=== PATIENT | male | born 1945 | race Caucasian/White ===

== ENCOUNTER 2024-05-18 05:38 | Emergency (ER) | payer MEDICARE, SELFPAY ==
[2024-05-18] VITALS (10 sets, daily range): BP systolic 100–121; BP diastolic 66–82; BMI 25.3
--- NOTE | 2024-05-18 06:55 | ED.GENMED ---
History of Present Illness
General
Chief Complaint: Fall
Time Seen by Provider: 05/18/24 06:54
History of Present Illness
History of Present Illness:
TIME OF INITIAL ENCOUNTER: 6:15 AM
HPI: Patient came in by ambulance from the [facility] after a fall and reportedly has had a few falls recently. The patient is somewhat of a limited historian. The patient has history of Lewy body dementia. He denies any pain currently.
He denies any complaints.
EXAM:
GENERAL: Well appearing in no distress, bradykinesia noted
CERVICAL SPINE: No midline c-spine tenderness with excellent AROM
HEAD: No evidence of craniofacial trauma
CHEST: No chest wall tenderness, normal heart sounds
LUNGS: Equal lung sounds, no respiratory distress
ABDOMEN: No abdominal tenderness, no peritoneal signs
EXTREMITIES: Near normal active range of motion, no tenderness,
NEURO: Equally decreased strength all extremities, appears slightly confused but is able to correctly name month and place, speaks in low-volume
NUMBER AND COMPLEXITY OF PROBLEMS ADDRESSED AT THE ENCOUNTER
� Chronic conditions affecting care: Dementia, Parkinson's Lewy body
� Acute Exacerbation and/or Progression of Chronic Illness: This is an acute problem
� Differential Diagnosis includes: Shoulder fracture, shoulder contusion, anemia, electrolyte abnormality ROSAMARIA
AMOUNT AND/OR COMPLEXITY OF DATA TO BE REVIEWED AND ANALYZED
� I performed an independent evaluation of and my interpretation is:
EKG:
CT:
X-rays: X-ray of the right shoulder reviewed which shows no acute abnormality but does show degenerative changes at the right AC joint
Laboratory Studies: CBC relatively unremarkable, chemistries also unremarkable (potassium hemolyzed and not reported but renal function normal)
Other:
� Review of other/old records: No old records available for review
� Clinical information was obtained by an independent historian: I reviewed the paperwork from EMS and facility notes
� Prescriptions/Medications Considered but not given:
� Further testing considered but not performed:
RISK OF COMPLICATIONS AND/OR MORBIDITY OR MORTALITY OF PATIENT MANAGEMENT
� Social determinants of health affecting care: Resides at the [facility]
� Discussion with other providers:
� Escalation of care including admission/observation vs risk of discharge considered: The patient appears chronically weak. He reportedly had been falling more recently, will check labs. No clear evidence of traumatic injury
based on physical examination.
ANY OTHER UPDATES:
8:30 AM: I reassessed patient. No further issues.
Phy Exam
Physical Exam
Physical Exam:
See HPI
Course
Orders/Labs/Results
Orders:
Orders
05/18/24 07:08
CR Shoulder, Trauma - Right Urgent
Comment:
Reason For Exam: fall
05/18/24 07:18
Basic Metabolic Panel Urgent
Complete Blood Count/With Diff Urgent
Abnormal Lab Results
05/18/24
07:18
WBC 4.5 L 10^3/uL
(4.8-10.8)
RBC 3.73 L 10^6/uL
(4.70-6.10)
Hgb 12.8 L g/dL
(13.0-18.0)
Hct 34.5 L %
(39.0-52.0)
MCH 34.3 H pg
(27.0-31.0)
MCHC 37.1 H g/dL
(33.0-37.0)
Absolute Lymphs (auto) 0.5 L 10^3/uL
(1.2-3.4)
Immature Gran % 0.7 H %
(0-0.5)
Neutrophils % 78.8 H %
(42.2-75.2)
Lymphocytes % 12.1 L %
(20.5-51.1)
Sodium 134 L mmol/L
(135-145)
BUN 35 H mg/dl
(12-15)
05/18/24 07:18
05/18/24 07:18
Vital Signs
Initial and Last Documented VS:
Initial Vital Signs
BP
117/72
05/18/24 05:44
Last Documented Vital Signs
Temp Pulse Resp BP Pulse Ox
36.9 C 77 16 113/82 95
05/18/24 05:57 05/18/24 06:08 05/18/24 05:57 05/18/24 09:15 05/18/24 09:45
*Critical Care Note
Total Time (30-74mins, 75-104mins- exclusive of procedures): Not Applicable
ED Attending Note
-
Portions of this chart may have been created with voice recognition software.� Occasional wrong word or��sound alike� substitutions may have occurred due to the inherent limitations of voice recognition software.
Discharge Plan
Departure
Patient Disposition: Home (Routine Discharge)
Date of Disposition: 05/18/24
Time of Disposition: 08:26
Patient with high blood pressure during this ER visit?: Yes
Discharge Problem:
Falls
Instructions: Preventing falls in adults, BLOOD PRESSURE
Prescriptions:
No Action
fluoxetine 40 mg Capsule
40 mg PO DAILY
atorvastatin 20 mg Tablet
20 mg PO DAILY
trazodone 50 mg Tablet
50 mg PO HS
donepezil 10 mg Tablet
10 mg PO HS
lisinopril 20 mg Tablet
20 mg PO DAILY
acetaminophen 500 mg Tablet
1,000 mg PO Q8H PRN (Reason: pain)
tamsulosin 0.4 mg Capsule
0.4 mg PO DAILY
albuterol sulfate 90 mcg/actuation Hfa Aerosol Inhaler
2 puff INHALATION BID
albuterol sulfate 90 mcg/actuation Hfa Aerosol Inhaler
2 puff INHALATION Q6H PRN (Reason: shortness of breath)
Certa Plus SENIOR Tablet
1 tab PO DAILY
Referrals:
UNKNOWN - PT DOES,NOT KNOW [Family Provider] -
Activity Restrictions/Additional Instructions:
Basic blood work unremarkable. No sign of traumatic injury on exam. Return here if worse or other concern.
Interventions
Interventions:
*Risk Screen - Suicide Last Done: 05/18/24 05:57
*General Assessment Last Done: 05/18/24 05:57
*Neglect/Abuse Screening Last Done: 05/18/24 05:57
ED- Fall Risk Assessment Last Done: 05/18/24 05:57
*ED COVID-19 Vaccine History Last Done: 05/18/24 05:57
ED-Musculoskeletal Assessment Last Done: 05/18/24 05:57
ED- Neurological Assessment Last Done: 05/18/24 05:57
ED-Skin Assessment Last Done: 05/18/24 06:00
Discharge Date and Time
Print Language: GEORGIAN
[2024-05-18 07:40] LABS: % Basophils 0.2 % (0-2); % Eosinophils 1.1 % (0-6); % Immature Granulocytes 0.7 % (0-0.5); % Lymphocytes 12.1 % (20.5-51.1); % Monocytes 7.1 % (1.7-9.3); % Neutrophils 78.8 % (42.2-75.2); Absolute Eosinophils 0.1 10^3/uL (0-0.7); Absolute Lymphocytes 0.5 10^3/uL (1.2-3.4); Absolute Monocytes 0.3 10^3/uL (0.1-0.6); Absolute Neutrophils 3.5 10^3/uL (1.4-6.5); Hematocrit 34.5 % (39.0-52.0); Hemoglobin 12.8 g/dL (13.0-18.0); Mean Corp Hgb Conc. 37.1 g/dL (33.0-37.0); Mean Corpuscular Hgb 34.3 pg (27.0-31.0); Mean Corpuscular Volume 92.5 fL (80.0-94.0); Mean Platelet Volume 9.4 fL (7.4-10.4); Nucleated Red Blood Cells % 0 % (-); Platelet Count 154 10^3/uL (130-400); Red Blood Cell Count 3.73 10^6/uL (4.70-6.10); Red Cell Dist. Width 11.6 % (11.5-14.5); White Blood Cell Count 4.5 10^3/uL (4.8-10.8)
[2024-05-18 08:23] LABS: Blood Urea Nitrogen 35 mg/dl (9-20); Calcium 8.7 mg/dl (8.4-10.2); Carbon Dioxide 23 mmol/L (22-30); Chloride 105 mmol/L (98-107); Estimated Creatinine Clearance 79 ml/min; Glucose 95 mg/dl (70-99); Sodium 134 mmol/L (135-145); eGFR > 60.00
== END 2024-05-18 10:57 | disposition home or self-care (01) ==
LOC: EMR 05:38
PROVIDERS: EMERGENCY PHYSICIAN Emergency Medicine
DX: Z04.89 Encounter for examination and observation for other specified reasons (principal); W19.XXXA Unspecified fall, initial encounter; F02.80 Dementia in other diseases classified elsewhere, unspecified severity, without behavioral disturbance, psychotic disturbance, mood disturbance, and anxiety; G31.83 Neurocognitive disorder with Lewy bodies
CPT/HCPCS: 99283; 73030; 80048; 85025

== ENCOUNTER 2024-07-11 12:15 | Emergency (ER) | payer MEDICARE, SELFPAY ==
[2024-07-11] VITALS (8 sets, daily range): BP systolic 91–133; BP diastolic 57–85; BMI 24.4
[2024-07-11 12:38] LABS: % Basophils 0.4 % (0-2); % Eosinophils 0.7 % (0-6); % Immature Granulocytes 0.2 % (0-0.5); % Lymphocytes 24.3 % (20.5-51.1); % Monocytes 6.9 % (1.7-9.3); % Neutrophils 67.5 % (42.2-75.2); Absolute Lymphocytes 1.1 10^3/uL (1.2-3.4); Absolute Monocytes 0.3 10^3/uL (0.1-0.6); Absolute Neutrophils 3.1 10^3/uL (1.4-6.5); Hematocrit 37.5 % (39.0-52.0); Hemoglobin 13.7 g/dL (13.0-18.0); Mean Corp Hgb Conc. 36.5 g/dL (33.0-37.0); Mean Corpuscular Hgb 33.7 pg (27.0-31.0); Mean Corpuscular Volume 92.4 fL (80.0-94.0); Mean Platelet Volume 9.2 fL (7.4-10.4); Nucleated Red Blood Cells % 0 % (-); Platelet Count 168 10^3/uL (130-400); Red Blood Cell Count 4.06 10^6/uL (4.70-6.10); Red Cell Dist. Width 11.3 % (11.5-14.5); White Blood Cell Count 4.6 10^3/uL (4.8-10.8)
[2024-07-11 12:40] LABS: Urine Albumin 2+ (Neg - Trace); Urine Bilirubin Negative (Negative); Urine Character Clear (Clear); Urine Color Yellow; Urine Glucose Negative (Negative); Urine Ketone Negative (Negative); Urine Leukocyte 1+ (Negative); Urine Nitrite Negative (Negative); Urine Occult Blood Negative (Negative); Urine Specific Gravity 1.015 (<1.030); Urine Urobilinogen 2+ (Neg - 1+)
[2024-07-11 12:52] LABS: ALT (SGPT) 33 U/L (0-50); AST (SGOT) 21 U/L (17-59); Albumin 3.4 g/dl (3.5-5.0); Alkaline Phosphatase 77 U/L (38-126); Blood Urea Nitrogen 30 mg/dl (9-20); Calcium 9.3 mg/dl (8.4-10.2); Carbon Dioxide 27 mmol/L (22-30); Chloride 105 mmol/L (98-107); Estimated Creatinine Clearance 57 ml/min; Glucose 112 mg/dl (70-99); Potassium 4.5 mmol/L (3.5-5.1); Sodium 139 mmol/L (135-145); Total Bilirubin 0.9 mg/dl (0.2-1.3); Total Protein 6.3 g/dl (6.3-8.2); eGFR > 60.00
[2024-07-11 13:22] LABS: Urine Bacteria Few (Negative); Urine Mucus Few; Urine Squamous Cell 0-2 /LPF (Few); Urine White Cell 0-2 /HPF (0-5)
--- NOTE | 2024-07-11 14:09 | ED.GENMED ---
History of Present Illness
General
Chief Complaint: Change in Mental Status
Source: patient
Exam Limitations: none
Time Seen by Provider: 07/11/24 12:49
Nursing documentation reviewed up to this point in time: agreed with
History of Present Illness
History of Present Illness:
78 y/o M
lewy body dementia
from [facility]
h/o BPH, frequent urination/incontinence
here with hypotension this morning with more lethargy/slower to respond than normal
pt does not recall this
he is able to answre some simplequestions but not christensen of details
no fever, pain, headache, cp, sob, abdominal pain, vomiting, diarrhea
he thinks he is a little constipated
Past History
Past History
ED Past Medical History: Psychiatric and Other (lewy body dementia)
Review of Systems
Review of Systems
Allergies reviewed?: Yes
All Other Systems: Not applicable
Phy Exam
Physical Exam
Physical Exam:
GENERAL: Alert , in no apparent distress, parkinsons' facies
EYE: pupils equal and reactive
NECK: Supple
ENT: o/p clr, mmm.
CARDIAC: Regular rate and rhythm . no edema
LUNGS: Clear breath sounds bilaterally, no acute respiratory distress, no wheezes/rales/rhonchi
ABDOMEN: Soft, without focal tenderness, no r/g, no cvat, normal bowel sounds
frequent urination , but this is reported as a chronic problem
inspection normal
NEUROLOGICAL: Alert and orientedx 2-3 no focal neuro deficits; tremor on intention; awake; slow to respond d/t parkinsons
SKIN: Warm and dry, skin intact.
MUSCULOSKELETAL: No edema, well perfused. neg saumya's sign
PSYCH: Normal and appropriate interaction.
Course
Orders/Labs/Results
Orders:
Orders
07/11/24 12:29
Complete Blood Count/With Diff Urgent
Comprehensive Metabolic Panel Urgent
07/11/24 12:30
Urinalysis Urgent
Date Specimen was Collected: 07/11/24
Time Specimen was Collected: 12:28
Urine Microscopic Urgent
Date Specimen was Collected: 07/11/24
Time Specimen was Collected: 12:28
07/11/24 13:27
CT Head W/o Iv Contrast Urgent
Comment:
Reason For Exam: ams
0.9% Sodium Chloride 500 ml [Nss] 500 ml IV BOLUS
07/11/24 13:28
CR Chest - 2 Views Urgent
Comment:
Reason For Exam: ams, hypotension
07/11/24 13:49
CT Abd/pel Without Iv Or Oral Urgent
Comment:
Reason For Exam: hematuria, urinary frequency, hypotension
07/11/24 14:50
COVID-19 Antigen Urgent
Source: Nasal Swab
Lactic Acid Urgent
Influenza A+B Rapid Molecular Urgent
JAMES Source: Nasal Swab
Specimen Description:
07/11/24 15:37
Fosfomycin [Monurol] 3 gm PO ONCE ONE
Abnormal Lab Results
07/11/24 07/11/24
12:29 12:30
WBC 4.6 L 10^3/uL
(4.8-10.8)
RBC 4.06 L 10^6/uL
(4.70-6.10)
Hct 37.5 L %
(39.0-52.0)
MCH 33.7 H pg
(27.0-31.0)
RDW 11.3 L %
(11.5-14.5)
Absolute Lymphs (auto) 1.1 L 10^3/uL
(1.2-3.4)
BUN 30 H mg/dl
(9-20)
Glucose 112 H mg/dl
(70-99)
Albumin 3.4 L g/dl
(3.5-5.0)
Urine Urobilinogen 2+ A
(Neg - 1+)
Ur Leukocyte Esterase 1+ A
(Negative)
Urine RBC 3-6 A /HPF
(0-2)
Urine Bacteria Few A
(Negative)
Urine Albumin 2+ A
(Neg - Trace)
07/11/24 12:29
07/11/24 12:29
Vital Signs
Initial and Last Documented VS:
Initial Vital Signs
Pulse Resp BP
71 17 102/62
07/11/24 12:19 07/11/24 12:19 07/11/24 12:19
Last Documented Vital Signs
Pulse Resp BP Pulse Ox
65 18 133/75 95
07/11/24 16:11 07/11/24 16:11 07/11/24 16:16 07/11/24 16:21
MDM/Problems Addressed
Differential Diagnosis Includes:
sepsis/infection, dehydration, parkinsons
MDM/Problems Addressed:
78 y/o M
parkinsons
ambulates with walker at baseline
more lethargic today thanusual per RN i spoke with on the phone
bp was 70/50
he did
ED Attending Note
-
Portions of this chart may have been created with voice recognition software.� Occasional wrong word or��sound alike� substitutions may have occurred due to the inherent limitations of voice recognition software.
Discharge Plan
Departure
Patient Disposition: Detention/SNF
Date of Disposition: 07/11/24
Time of Disposition: 17:03
Patient with high blood pressure during this ER visit?: No
Condition: Fair
Covid-19: Not Applicable
Discharge Problem:
Parkinson's disease
Instructions: Dementia (DC)
Prescriptions:
No Action
fluoxetine 40 mg Capsule
40 mg PO DAILY
atorvastatin 20 mg Tablet
20 mg PO DAILY
trazodone 50 mg Tablet
50 mg PO HS
donepezil 10 mg Tablet
10 mg PO HS
lisinopril 20 mg Tablet
20 mg PO DAILY
acetaminophen 500 mg Tablet
1,000 mg PO Q8HPRN PRN (Reason: MILD pain)
tamsulosin 0.4 mg Capsule
0.4 mg PO DAILY
albuterol sulfate 90 mcg/actuation Hfa Aerosol Inhaler
2 puff INHALATION R BID
albuterol sulfate 90 mcg/actuation Hfa Aerosol Inhaler
2 puff INHALATION R Q6HPRN PRN (Reason: shortness of breath)
Certa Plus SENIOR Tablet
1 tab PO DAILY
Referrals:
Kevin Franco MD [Family Provider] -
Activity Restrictions/Additional Instructions:
THERE WAS NO HYPOTENSION HERE
BPS WERE INT HE 100S
NO FEVER
UNREMARKABLE LABS (STABLE ELEVATED BUN, BUT HE WAS GIVEN FLUIDS)
URINE WAS MINIMAL: FEW BACTERIA BUT NO WBCS, SMALL BLOOD
CT HEAD/ABDOMEN NEG
GIVEN A DOSE OF MONUROL IN CASE HE HAS INFECTION
WILL SEND URINE CULTURE
WAS ABLE TO AMBULATE WITH WALKER
Interventions
Interventions:
*Risk Screen - Suicide Last Done: 07/11/24 12:26
*General Assessment Last Done: 07/11/24 12:26
*ED COVID-19 Vaccine History Last Done: 07/11/24 12:26
*Nursing Disposition Last Done: 07/11/24 18:31
ED- Neurological Assessment Last Done: 07/11/24 14:56
Discharge Date and Time
Discharge Date/Time: 07/11/24 18:32
Print Language: SPANISH
[2024-07-11] MEDS: NSS 500 IV (14:52)
[2024-07-11 15:16] LABS: COVID-19 Antigen Negative (Negative)
[2024-07-11 15:17] LABS: Lactic Acid 0.9 mmol/L (0.7-2.0)
[2024-07-11] MEDS: MONUROL 3 GM PO (16:09)
== END 2024-07-11 18:32 ==
LOC: EMR 12:15
PROVIDERS: Emergency Medicine; Physician Assistant; EMERGENCY PHYSICIAN Emergency Medicine; FAMILY PHYSICIAN Family Medicine
DX: G20.A1 Parkinson's disease without dyskinesia, without mention of fluctuations (principal); K59.00 Constipation, unspecified; G31.83 Neurocognitive disorder with Lewy bodies; F02.80 Dementia in other diseases classified elsewhere, unspecified severity, without behavioral disturbance, psychotic disturbance, mood disturbance, and anxiety
CPT/HCPCS: 99284; 96360; 70450; 71046; 74176; 80053; 81003; 81015; 83605; 85025; 87502; 87811

== ENCOUNTER → 2024-11-19 11:22 | Outpatient (REF) | payer OTHER, MEDICARE, SELFPAY ==
[2024-11-19 13:53] LABS: Hematocrit 39.3 % (39.0-52.0); Hemoglobin 13.8 g/dL (13.0-18.0); Mean Corp Hgb Conc. 35.1 g/dL (33.0-37.0); Mean Corpuscular Volume 93.8 fL (80.0-94.0); Nucleated Red Blood Cells % 0 % (-); Platelet Count 198 10^3/uL (130-400); Red Cell Dist. Width 11.6 % (11.5-14.5)
[2024-11-19 14:03] LABS: Blood Urea Nitrogen 24 mg/dl (9-20); Calcium 8.7 mg/dl (8.4-10.2); Carbon Dioxide 27 mmol/L (22-30); Chloride 105 mmol/L (98-107); Glucose 98 mg/dl (70-99); Potassium 4.2 mmol/L (3.5-5.1); Sodium 136 mmol/L (135-145); eGFR > 60.00
== END ==
LOC: OLABP 11:22
PROVIDERS: ATTENDING PHYSICIAN Family Medicine
DX: M62.59 Muscle wasting and atrophy, not elsewhere classified, multiple sites (principal); E78.5 Hyperlipidemia, unspecified; F03.90 Unspecified dementia, unspecified severity, without behavioral disturbance, psychotic disturbance, mood disturbance, and anxiety
CPT/HCPCS: 36415; 80048; 85025

== ENCOUNTER 2025-01-13 10:00 | Emergency (ER) | payer MEDICARE, SELFPAY ==
[2025-01-13 10:04] VITALS: BP 119/74
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
[2025-01-13 10:53] VITALS: BP 138/83
[2025-01-13 10:57] VITALS: BMI 25.1
[2025-01-13 11:00] VITALS: BP 125/83
[2025-01-13 12:01] VITALS: BP 117/71
== END 2025-01-13 12:50 | disposition home or self-care (01) ==
LOC: EMR 10:00
PROVIDERS: EMERGENCY PHYSICIAN Emergency Medicine; FAMILY PHYSICIAN Family Medicine
DX: S09.90XA Unspecified injury of head, initial encounter (principal); S50.312A Abrasion of left elbow, initial encounter; W19.XXXA Unspecified fall, initial encounter; G20.A1 Parkinson's disease without dyskinesia, without mention of fluctuations; G31.83 Neurocognitive disorder with Lewy bodies; F02.80 Dementia in other diseases classified elsewhere, unspecified severity, without behavioral disturbance, psychotic disturbance, mood disturbance, and anxiety
CPT/HCPCS: 99284; 70450

== ENCOUNTER 2025-03-22 11:08 | Inpatient (IN) | payer MEDICARE, SELFPAY ==
[2025-03-20] VITALS (10 sets, daily range): BP systolic 93–158; BP diastolic 62–88
--- NOTE | 2025-03-20 09:21 | ED.GENMED ---
History of Present Illness
<Ruma Romano PA-C - Last Filed: 03/20/25 14:56>
General
Chief Complaint: Fall
Source: patient, ambulance crew and long term
Exam Limitations: dementia
Time Seen by Provider: 03/20/25 09:05
Nursing documentation reviewed up to this point in time: agreed with
History of Present Illness
History of Present Illness:
see MDM
Past History
<Ruma Romano PA-C - Last Filed: 03/20/25 14:56>
Past History
ED Past Medical History: Psychiatric and Other (lewy body dementia)
Social History
Tobacco: Non-smoker
Alcohol: None
Review of Systems
<USAMA Elizalde Last Filed: 03/20/25 14:56>
Review of Systems
Allergies reviewed?: Yes
All Other Systems: Not applicable
Phy Exam
<Ruma Romano PA-C - Last Filed: 03/20/25 14:56>
Physical Exam
Physical Exam:
GENERAL: Alert , in no apparent distress
HEAD: Patient has a 3.5 cm open laceration nonbleeding to the left parietal scalp, small hematoma, mildly tender
NECK: no midline tenderness, active ROM intact, no paraspinal muscle tenderness;
EYE: pupils equal and reactive, EOMs intact.
ENT: o/p clr, mmm. no hemotympanum
CARDIAC: Regular rate and rhythm, no edema
LUNGS: Clear breath sounds bilaterally, no acute respiratory distress, no wheezes/rales/rhonchi
ABDOMEN: Soft, without focal tenderness, no r/g, no cvat
NEUROLOGICAL: Alert and oriented x 2, thinks he is at [facility], occasionally speaks some nonsensical language but otherwise can answer simple questions, does not recall the injury, no focal neuro deficits, CN intact, 5/5 strength,
sensation intact
SKIN: Warm and dry,
2 cm round flucutant abscess to midline upper L spine region
already draning with expression
cultured, I&D'd
no cellulitis
MUSCULOSKELETAL: Right forearm skin tear with some bruising with full range of motion, left hip mildly sore with flexion
PSYCH: Normal and appropriate interaction.
Course
<Ruma Romano PA-C - Last Filed: 03/20/25 14:56>
Orders/Labs/Results
Orders:
Orders
03/20/25 08:35
CT Cervical Spine W/o Iv Contr Urgent
Comment:
Reason For Exam: fall
CT Head W/o Iv Contrast Urgent
Comment:
Reason For Exam: fall
03/20/25 09:24
Electrocardiogram (*1) Urgent
Reason for Study: Fatigue / Weakness
EKG- Treatment ONCE
03/20/25 09:29
CR Forearm - Right 2 View Urgent
Comment:
Reason For Exam: fall
Hip, Left 2-3 Views [CR Hip - LT w/wo Pel 2-3 Vw*] Urgent
Comment:
Reason For Exam: fall L hip pain
Include a pelvis x-ray?: Yes
03/20/25 09:37
CPK [Creatine Phosphokinase] Urgent
Complete Blood Count/With Diff Urgent
Comprehensive Metabolic Panel Urgent
Urinalysis Reflex To Culture Urgent
Date Specimen was Collected: 03/20/25
Time Specimen was Collected: 09:26
Urine Microscopic Reflex Cult Urgent
Urine Culture Urgent
JAMES Source: U
Specimen Description:
Date Specimen was Collected: 03/20/25
Time Specimen was Collected: 09:26
03/20/25 09:59
0.9% Sodium Chloride 1000 ml [Nss] 1,000 ml IV BOLUS
03/20/25 10:16
Troponin I Urgent
03/20/25 11:46
Basic Metabolic Panel Urgent
CPK [Creatine Phosphokinase] Urgent
03/20/25 13:26
Admit/Transfer Patient As Directed
Co-Sign Provider:
Level of Care: Observation services
Assign to:: Medical/Surgical
Physician / Group: florentino burris
Diagnosis: unwitnessed fall l scalp lac, R arm skintear, rhabdo-mild, weakness
03/20/25 13:27
Code Status As Directed
Resuscitation Status: Do not resuscitate
Based on pt advanced directive or healthcare POA form: Yes
Decision communicated with: per poldst form
DNR Bracelet Application ONCE
03/20/25 13:28
PRN Pain Medication Management As Directed
May give lesser potent ordered pain med per pt: Yes
preference::
Protocol:: Medication orders for pain may be administered in a
manner that supports deferring to patient preference
when the pt is:
- Requesting an ordered lesser potent pain medication.
Least to most potent pain medications are defined
as: acetaminophen < NSAID < tramadol < opioids
(morphine, oxycodone, hydromorphone).
- Requesting a lesser dose of the same medication IF
ORDERED.
- Requesting a less intrusive route of administration
if both routes are prescribed by the provider (PO <
IV).
03/20/25 13:45
COVID-19 Antigen Urgent
Source: Nasal Swab
Influenza A+B Rapid Molecular Urgent
JAMES Source: Nasal Swab
Specimen Description:
03/20/25 14:00
CefTRIAXone [Rocephin] 1,000 mg IV Q24H
03/20/25 14:19
Doxycycline Hyclate [Vibramycin] 100 mg 0.9% Sodium Chloride 250 ml [Nss] 250 ml IV NOW
Abnormal Lab Results
03/20/25 03/20/25
09:37 11:46
RBC 4.24 L 10^6/uL
(4.70-6.10)
Hct 37.7 L %
(39.0-52.0)
MCH 32.8 H pg
(27.0-31.0)
Absolute Lymphs (auto) 0.8 L 10^3/uL
(1.2-3.4)
Absolute Monos (auto) 0.7 H 10^3/uL
(0.1-0.6)
Neutrophils % 79.1 H %
(42.2-75.2)
Lymphocytes % 10.8 L %
(20.5-51.1)
Monocytes % 9.4 H %
(1.7-9.3)
BUN 29 H mg/dl 25 H mg/dl
(9-20) (9-20)
Glucose 109 H mg/dl
(70-99)
Total Bilirubin 1.7 H mg/dl
(0.2-1.3)
Creatine Kinase 941 H U/L 934 H U/L
(55-170) (55-170)
Urine Ketones 2+ A
(Negative)
Ur Occult Blood Reflex 4+ A
(Negative)
Leukocyte Esterase Rfl 1+ A
(Negative)
Urine RBC 11-15 A /HPF
(0-2)
Urine Bacteria (Reflex) Many A
(Negative)
Urine Albumin (Reflex) 3+ A
(Neg - Trace)
03/20/25 09:37
03/20/25 11:46
Vital Signs
Initial and Last Documented VS:
Initial Vital Signs
Temp Pulse Resp Pulse Ox
36.4 C 70 22 98
03/20/25 08:32 03/20/25 08:32 03/20/25 08:32 03/20/25 08:32
Last Documented Vital Signs
Temp Pulse Resp BP Pulse Ox
38.0 C H 71 14 125/87 97
03/20/25 13:38 03/20/25 13:00 03/20/25 13:00 03/20/25 13:00 03/20/25 10:40
<Zeferino Art, DO - Last Filed: 03/20/25 12:33>
Orders/Labs/Results
Orders:
Orders
03/20/25 08:35
CT Cervical Spine W/o Iv Contr Urgent
Comment:
Reason For Exam: fall
CT Head W/o Iv Contrast Urgent
Comment:
Reason For Exam: fall
03/20/25 09:24
Electrocardiogram (*1) Urgent
Reason for Study: Fatigue / Weakness
EKG- Treatment ONCE
03/20/25 09:29
CR Forearm - Right 2 View Urgent
Comment:
Reason For Exam: fall
Hip, Left 2-3 Views [CR Hip - LT w/wo Pel 2-3 Vw*] Urgent
Comment:
Reason For Exam: fall L hip pain
Include a pelvis x-ray?: Yes
03/20/25 09:37
CPK [Creatine Phosphokinase] Urgent
Complete Blood Count/With Diff Urgent
Comprehensive Metabolic Panel Urgent
Urinalysis Reflex To Culture Urgent
Date Specimen was Collected: 03/20/25
Time Specimen was Collected: 09:26
Urine Microscopic Reflex Cult Urgent
Urine Culture Urgent
JAMES Source: U
Specimen Description:
Date Specimen was Collected: 03/20/25
Time Specimen was Collected: 09:26
03/20/25 09:59
0.9% Sodium Chloride 1000 ml [Nss] 1,000 ml IV BOLUS
03/20/25 10:16
Troponin I Urgent
03/20/25 11:46
Basic Metabolic Panel Urgent
CPK [Creatine Phosphokinase] Urgent
03/20/25 13:26
Admit/Transfer Patient As Directed
Co-Sign Provider:
Level of Care: Observation services
Assign to:: Medical/Surgical
Physician / Group: florentino burris
Diagnosis: unwitnessed fall l scalp lac, R arm skintear, rhabdo-mild, weakness
03/20/25 13:27
Code Status As Directed
Resuscitation Status: Do not resuscitate
Based on pt advanced directive or healthcare POA form: Yes
Decision communicated with: per poldst form
DNR Bracelet Application ONCE
03/20/25 13:28
PRN Pain Medication Management As Directed
May give lesser potent ordered pain med per pt: Yes
preference::
Protocol:: Medication orders for pain may be administered in a
manner that supports deferring to patient preference
when the pt is:
- Requesting an ordered lesser potent pain medication.
Least to most potent pain medications are defined
as: acetaminophen < NSAID < tramadol < opioids
(morphine, oxycodone, hydromorphone).
- Requesting a lesser dose of the same medication IF
ORDERED.
- Requesting a less intrusive route of administration
if both routes are prescribed by the provider (PO <
IV).
03/20/25 13:45
COVID-19 Antigen Urgent
Source: Nasal Swab
Influenza A+B Rapid Molecular Urgent
JAMES Source: Nasal Swab
Specimen Description:
03/20/25 14:00
CefTRIAXone [Rocephin] 1,000 mg IV Q24H
03/20/25 14:19
Doxycycline Hyclate [Vibramycin] 100 mg 0.9% Sodium Chloride 250 ml [Nss] 250 ml IV NOW
Abnormal Lab Results
03/20/25 03/20/25
09:37 11:46
RBC 4.24 L 10^6/uL
(4.70-6.10)
Hct 37.7 L %
(39.0-52.0)
MCH 32.8 H pg
(27.0-31.0)
Absolute Lymphs (auto) 0.8 L 10^3/uL
(1.2-3.4)
Absolute Monos (auto) 0.7 H 10^3/uL
(0.1-0.6)
Neutrophils % 79.1 H %
(42.2-75.2)
Lymphocytes % 10.8 L %
(20.5-51.1)
Monocytes % 9.4 H %
(1.7-9.3)
BUN 29 H mg/dl 25 H mg/dl
(9-20) (9-20)
Glucose 109 H mg/dl
(70-99)
Total Bilirubin 1.7 H mg/dl
(0.2-1.3)
Creatine Kinase 941 H U/L 934 H U/L
(55-170) (55-170)
Urine Ketones 2+ A
(Negative)
Ur Occult Blood Reflex 4+ A
(Negative)
Leukocyte Esterase Rfl 1+ A
(Negative)
Urine RBC 11-15 A /HPF
(0-2)
Urine Bacteria (Reflex) Many A
(Negative)
Urine Albumin (Reflex) 3+ A
(Neg - Trace)
03/20/25 09:37
03/20/25 11:46
Vital Signs
Initial and Last Documented VS:
Initial Vital Signs
Temp Pulse Resp Pulse Ox
36.4 C 70 22 98
03/20/25 08:32 03/20/25 08:32 03/20/25 08:32 03/20/25 08:32
Last Documented Vital Signs
Temp Pulse Resp BP Pulse Ox
38.0 C H 71 14 125/87 97
03/20/25 13:38 03/20/25 13:00 03/20/25 13:00 03/20/25 13:00 03/20/25 10:40
Procedures
<Ruma Romano PA-C - Last Filed: 03/20/25 14:56>
Laceration Closure
Left Upper Posterior Scalp:
Status of Wound: clean
Size of Wound in cm: 3.5
Description of Wound Edges: sharp
Preparation: cleaned with saline
Anesthesia: 1% Lidocaine with epi
Revision/Debridement: routine- no revision
Type of Closure: single layer closure
Skin Closure Material: skin myah
Number of sutures: 4
Incision/Drainage/Joint Aspiration
Lower Back:
Anethesia: 1% Lidocaine with Epi
Preparation: cleaned with Betadine
Type of procedure: incise
Nature of site: abscess
Description of abscess: less than 3cm
Loculations broken up: Yes
How much fluid was obtained?: small amount
Fluid description: purulent
Treatment: left open for drainage
<uRma Romano PA-C - Last Filed: 03/20/25 14:56>
MDM/Problems Addressed
Differential Diagnosis Includes:
See MDM
MDM/Problems Addressed:
Note:
CHIEF COMPLAINT(S)
- Fall with head injury.
HISTORY OF PRESENT ILLNESS
The patient is a 79-year-old male h/o parkinsons and lewy body dementia who presented after a fall. from [facility]. The exact location of the fall was not specified in the conversation, but it was confirmed that the patient did experience
a fall and subsequently had bruising and a cut on his right arm. The patient experiences a headache but seems uncertain about the exact pain ('Do you have a headache? Yeah. You have a headache? I dont know.'). The patient had some difficulty opening
his eyes when asked to do so, requiring multiple prompts. During the examination, the patient was asked to perform various tasks such as squeezing hands, sticking out his tongue, and lifting his legs. The tests revealed hip pain upon movement, with
the right hip being cited as painful.
he is poor historian
i called [facility]
upon morning rounds, he was on the ground on his back, wounds R forearm
pt has no h/o blood thinners
CHRONIC MEDICAL CONDITIONS SIGNIFICANTLY AFFECTING CARE
- Parkinsons disease.
PHYSICAL EXAM
see above
PROBLEM LIST
Acute Problems:
- Fall with head injury.
- Arm laceration and bruising.
- Hip pain.
Chronic Problems:
- Parkinsons disease.
DIFFERENTIAL DIAGNOSIS
The Differential Diagnosis includes, in no particular order and is not limited to:
1. Parkinsons disease-associated falls and injury.
2. Orthostatic hypotension leading to fall.
3. Cerebrovascular accident.
4. Head trauma with possible concussion.
5. Dementia or cognitive impairment contributing to fall risk.
6. Cardiac arrhythmia causing syncope.
7. Seizure disorder with post-ictal state.
8. Vestibular dysfunction.
9. Medication side effects contributing to falls.
10. Lower extremity weakness from chronic conditions.
CARE-UPDATE
03/20/25 - 10:21
The patient was found on his back with a 3.5 cm laceration on the left side of the scalp, which had dried blood but no active bleeding. He also exhibited mild discomfort with left hip movement, but X-ray showed only mild degenerative changes, with
no fracture. A skin tear was noted on the right forearm, but no forearm fracture was present. Head and neck CT scans were negative except for degenerative joint disease. The patients dark urine raised concern for rhabdomyolysis, but CPK levels will
determine further management. Currently receiving IV fluids with disposition pending CPK results.
2nd CPK still elevated
admit
note pt had abscess midline back wihtout cellulitis
likely follicultiis
I&D successful, cultured
pt now febrile
admit
iv abx
<Ruma Romano PA-C - Last Filed: 03/20/25 14:56>
*Pulse Oximetry
SaO2: 98
Oxygen Mode of Delivery: Room air
Patient hypoxic: no (97)
*Critical Care Note
Total Time (30-74mins, 75-104mins- exclusive of procedures): Not Applicable
ED Attending Note
<Ruma Romano PA-C - Last Filed: 03/20/25 14:56>
-
Portions of this chart may have been created with voice recognition software.� Occasional wrong word or��sound alike� substitutions may have occurred due to the inherent limitations of voice recognition software.
<Zeferino Art DO - Last Filed: 03/20/25 12:33>
ED Attending Note
Patient seen and examined by attending physician: Yes
I performed the substantive portion of visit, reviewed & personally made and approve the management plan that is documented in note by myself or RUBEN.: Yes
ED Attending Note:
I evaluated the patient at bedside. The patient appears generally weak and debilitated. He has dementia and Parkinson's. Initial CK elevated, gave IV fluids, CK remains elevated after IV fluids. He remains to appear generally weak and
debilitated; planning on keeping him in the hospital for further evaluation and management of at least mild rhabdomyolysis.
Discharge Plan
Departure
Patient Disposition: Admit
Date of Disposition: 03/20/25
Time of Disposition: 12:31
Admit to: Med/Surg
Presentation/result/management discussed w/ accepting MD/DO: Hospitalist
Condition: Fair
Covid-19: Not Applicable
Discharge Problem:
Head injury, Laceration of scalp, Rhabdomyolysis
Interventions
Interventions:
*General Assessment Last Done: 03/20/25 08:32
*Neglect/Abuse Screening Last Done: 03/20/25 08:32
[facility] Fall Risk Assessment Tool Last Done: 03/20/25 09:38
*Risk Screen - Suicide (C-SSRS) Last Done: 03/20/25 08:32
ED-Musculoskeletal Assessment Last Done: 03/20/25 09:35
ED- Neurological Assessment Last Done: 03/20/25 08:56
ED-Skin Assessment Last Done: 03/20/25 09:35
[2025-03-20 09:51] LABS: Hematocrit 37.7 % (39.0-52.0); Hemoglobin 13.9 g/dL (13.0-18.0); Mean Corp Hgb Conc. 36.9 g/dL (33.0-37.0); Mean Corpuscular Volume 88.9 fL (80.0-94.0); Nucleated Red Blood Cells % 0 % (-); Platelet Count 181 10^3/uL (130-400); Red Cell Dist. Width 11.7 % (11.5-14.5)
[2025-03-20 09:58] LABS: ALT (SGPT) 23 U/L (0-50); AST (SGOT) 46 U/L (17-59); Albumin 3.8 g/dl (3.5-5.0); Alkaline Phosphatase 92 U/L (38-126); Blood Urea Nitrogen 29 mg/dl (9-20); Calcium 9.0 mg/dl (8.4-10.2); Carbon Dioxide 26 mmol/L (22-30); Chloride 103 mmol/L (98-107); Glucose 109 mg/dl (70-99); Potassium 4.1 mmol/L (3.5-5.1); Sodium 135 mmol/L (135-145); Total Protein 7.1 g/dl (6.3-8.2); eGFR > 60.00
[2025-03-20] MEDS: NSS 1000 IV ×2 (10:44→18:43)
[2025-03-20 10:45] LABS: Troponin I < 0.012 ng/ml
[2025-03-20 10:54] LABS: Urine Character Clear (Clear)
[2025-03-20 11:10] LABS: Urine Squamous Cell 0-2 /LPF (Few)
[2025-03-20 12:07] LABS: Blood Urea Nitrogen 25 mg/dl (9-20); Calcium 8.6 mg/dl (8.4-10.2); Carbon Dioxide 27 mmol/L (22-30); Chloride 106 mmol/L (98-107); Glucose 94 mg/dl (70-99); Potassium 3.6 mmol/L (3.5-5.1); Sodium 137 mmol/L (135-145); eGFR > 60.00
--- NOTE | 2025-03-20 13:02 | HPS.HSE ---
Addendum entered and electronically signed by Ras Marshall MD 03/20/25 14:12:
I saw and examined the patient.
The ENVIRONMENTAL SERVICES FLOOR TECH or PA's note was reviewed and I agree with the note.
Comment:
Physical Exam
General: No Pain, Fever or Chills. Chronically ill looking
HEENT: Normocephalic, Anicteric, Moist mucous membranes, PERRLA, [place] Conjunctivae, No Ptosis, Neck Nontender and Other (left parietal scalp laceration with 4 hermilo present )
Respiratory: Clear; No Wheezes, Rales or Rhonchi
Cardiac: S1/S2 and Regular Rhythm.
GI: Soft, Non Tender, Non Distended, Normal Bowel Sounds
Rectal: No bleed
Genito-urinary: No Brand. No hematuria
Musculoskeletal: No Clubbing, No Cyanosis and No Edema
Skin: Warm, Dry and Other (right forearm skin tear, Lower thoracic skin abscess on exam I/D done by ER pa ); No Rash
Neuro: Awake, Alert, Oriented (to first last name only ( is baseline)) and Cranial Nerves Intact; No Slurred Speech, Facial Droop or Tremors
Psych: Calm, apparent dementia
Assessment and plan your
#Unwitnessed fall with left parietal scalp laceration
#Chronic ambulatory dysfunction
-[place] #4 placed left parietal scalp in ER will need removal 7 to 10 days
-Tylenol for headache
- Consult PT/OT
CT head: No acute intracranial abnormalities
C-spine: Negative
Left hip/pelvis x-ray: No acute abnormalities
Right forearm: No acute abnormalities
EKG: Sinus rhythm with PVCs 78 bpm, QTc B41 MS no previous EKG
#Fever with pyuria concern for UTI
UA +1 leukocyte, WBC 11-15, many bacteria, +2 ketones
Blood culture
Iv Rocephin 1 gm daily
-doxycycline 100 mg bid
#Skin abscess lower thoracic
Seems to be originating from folliculitis
- i/d done by Er at bedside
cont Iv Rocephin an doxycycline
# Acute traumatic mild rhabdomyolysis
- CPK 934
No renal dysfunction.
No need to follow CPK
- IV fluids given in ER, continue IV NSS 80 cc an hour
- Consult PT/OT
#Parkinson's disease with Chronic Lewy body dementia baseline oriented x 1
Pt oriented to first and last name only
- Continue donepezil 5 mg every afternoon
#HLD
-Continue atorvastatin 20 mg every afternoon
#BPH
-Continue tamsulosin 0.4 mg at bedtime
#Depression
-Continue duloxetine 30 mg daily
#Insomnia
-Hold current melatonin and trazodone due to weakness
DVT prophylaxis
sq lovenox
DNR , no G tube
Per nurse Joe at [facility] pt is on palliative care with [facility] under care of Neelam Cobb ENVIRONMENTAL SERVICES FLOOR TECH. His Sister in law Heather De La Rosa [phone] is his emergency contact
I spoke with POA, emergency contact, updated her. Answered all her questions
Total time spent to see the patient, examine the patient, review data and lab results, discuss treatment plan with patient, his POA, ER doctor, nursing staff around 75 minutes
Original Note:
Family Physician
-
Family Physician: Kevin Franco
Chief Complaint
-
fall Left scalp laceration, right arm skin tear, hip pain
History of Present Illness
79-year-old male with history of Lewy body dementia, Parkinson's from [facility] who was found on the floor after a fall. The patient complained of headache and had bruising to right arm along with a left parietal scalp laceration and hip
pain. He was noted to have mild rhabdomylosis was given IV fluids in ER but appears weak and debilitated. The patient Is oriented to first and last name, thinks he still lives in [facility].He denies current H/a, Cp , palpitations, sob, cough abd
pain , nausea , vomiting , diarrhea urinary symptoms. Per nurse Adamson at [facility] pt is on pallitative care with [facility] under care of Neelam Ferreira NP. His Sister in law leandro De La Rosa [phone] is his
emergency contact . The patient was noted to have a lower thoracic skin abscess on exam along with 100.4 rectal temperature.
The Patient has past medical history of Lewy body dementia, Parkinson's, depression, HLD, BPH, insomnia, chronic ambulatory dysfunction
Medical History
Past Medical History
Past Medical History: Reports Other
Additional Past Medical History:
Lewy body dementia
Parkinson's
depression
HLD
BPH
insomnia
chronic ambulatory dysfunction
Past Surgical History: Reports Other (Hernia repair)
Additional Past Surgical History:
inguinal hernia repair
Social History
Tobacco: Non-smoker
Alcohol: None
Drug: None
Living: [facility] ([facility] )
Employment: Disabled
Family History
Family History: Unable to Obtain
Allergies / Home Medications
Allergies reflects when Allergies were last updated in [facility].
Home Medications with original date entered in [facility]
Allergy/Medication List:
Allergies
Allergy/AdvReac Type Severity Reaction Status Date / Time
Penicillins Allergy Unknown Verified 01/13/25 10:04
Home Medications
acetaminophen 500 mg tablet 500 mg PO .SEE BELOW PRN MILD pain 05/18/24
albuterol sulfate 90 mcg/actuation aerosol inhaler 2 puff inhalation R Q4HPRN PRN wheezing 05/18/24
atorvastatin 20 mg tablet 20 mg PO QPM 05/18/24
tamsulosin 0.4 mg capsule 0.4 mg PO DAILY 05/18/24
trazodone 50 mg tablet 50 mg PO QPM 05/18/24
donepezil 5 mg tablet 5 mg PO QPM 03/20/25
duloxetine 30 mg capsule,delayed release 30 mg PO DAILY 03/20/25
eyelid cleanser combination 5 (OcuSoft Lid Scrub topical pads) 1 pad topical TID 03/20/25
guar gum 3 g PO BID 03/20/25
magnesium hydroxide 400 mg/5 mL oral suspension (Milk of Magnesia) 30 ml PO DAILYPRN PRN constipation 03/20/25
melatonin 5 mg tablet 5 mg PO HS 03/20/25
therapeutic multivitamin 1 tab PO DAILY 03/20/25
Review of Systems
-
History Source: Patient and [facility] (nurse adamson )
A 12 point ROS was completed and negative except as noted: Yes
Constitutional: Reports Fatigue; Denies Fever or Chills
EENT: Reports Other (Left partieal scalp laceration); Denies Sore Throat or Runny Nose
Respiratory: Denies Cough or Trouble Breathing
Cardiac: Denies Chest Pain, Diaphoresis, Palpitations or Syncope
Abdomen/GI: Denies Abdominal Pain, Nausea, Vomiting, Diarrhea, Constipated or Bloody Stools
: Denies Dysuria, Frequency, Incontinence or Difficulty Voiding
Musculoskeletal: Denies Joint Pain or Edema
Skin: Reports Other (right forearm skin tear ); Denies Itching or Rash
Neurological: Denies Dizzy, Headache or Weakness
Endocrine: Reports No Symptoms
Hematologic/Lymphatic: Reports No Symptoms
Psych: Reports Calm
Physical Exam
Vital Signs
Vital Signs
Temp Pulse Resp BP Pulse Ox
97.6 F 76 20 158/88 97
03/20/25 08:32 03/20/25 10:41 03/20/25 10:41 03/20/25 10:41 03/20/25 10:40
Physical Exam
General: No Pain, Fever or Chills
HEENT: NormoCephalic, Anicteric, Moist mucous membranes, PERRLA, [place] Conjunctivae, No Ptosis, Neck Nontender and Other (left parietal scalp laceration with 4 hermilo present )
Respiratory: Clear; No Wheezes, Rales or Rhonchi
Cardiac: S1/S2 and Regular Rhythm; No Murmur, Rub, Gallop or Peripheral Edema
Breast: Deferred by me
GI: Soft, Non Tender, Non Distended, Normal Bowel Sounds and No Hepatosplenomegaly
Rectal: Deferred by Provider
Genito-urinary: Deferred by me
Musculoskeletal: No Clubbing, No Cyanosis and No Edema
Skin: Warm, Dry and Other (right forearm skin tear, Lower thoracic skin abcess on exam I/D done by ER pa ); No Rash
Neuro: Awake, Alert, Oriented (to first last name only ( is baseline)) and Cranial Nerves Intact; No Slurred Speech, Facial Droop or Tremors
Psych: Calm
Laboratory Results
-
03/20/25 09:37
03/20/25 11:46
Laboratory Results
Total Bilirubin 1.7 mg/dl (0.2-1.3) H 03/20/25 09:37
AST 46 U/L (17-59) 03/20/25 09:37
ALT 23 U/L (0-50) 03/20/25 09:37
Alkaline Phosphatase 92 U/L (38-126) 03/20/25 09:37
Troponin I < 0.012 ng/ml 03/20/25 10:16
Impression/Plan
-
Impression/plan:
OBS MedSurg
#Unwitnessed fall with left parietal scalp laceration
#Chronic ambulatory dysfunction
-[place] #4 placed left parietal scalp in ER will need removal 7 to 10 days
-Tylenol for headache
- Consult PT/OT
CT head: No acute intracranial abnormalities
C-spine: Negative
Left hip/pelvis x-ray: No acute abnormalities
Right forearm: No acute abnormalities
EKG: Sinus rhythm with PVCs 78 bpm, QTc B41 MS no previous EKG
#Fever with pyuria concern for UTI
UA +1 leukocyte, WBC 11-15, many bacteria, +2 ketones
Iv rocephin 1 gm daily
-doxycycline 100 mg bid
#Skin abscess lower thoracic
- i/d done by Er at bedside
cont Iv rocephin an doxycycline
#Generalized weakness mild rhabdomyolysis
- CPK 934
- Follow CPK
- IV fluids given in ER, continue IV NSS 80 cc an hour
- Consult PT/OT
#Parkinson's disease with Chronic Lewy body dementia baseline oriented x 1
Pt oriented to first and last name only
- Continue donepezil 5 mg every afternoon
#HLD
-Continue atorvastatin 20 mg every afternoon
#BPH
-Continue tamsulosin 0.4 mg at bedtime
#Depression
-Continue duloxetine 30 mg daily
#Insomnia
-Hold current melatonin and trazodone due to weakness
DVT prophylaxis
sq lovenox
DNR , no G tube
Per nurse Adamson at [facility] pt is on pallitative care with [facility] under care of Neelam Ferreira NP. His Sister in law leandro De La Rosa [phone] is his emergency contact
--- NOTE | 2025-03-20 14:00 | CM ---
Chart reviewed HEAD reviewed with GENNY Romero over the phone
Lives at [facility] [phone]
hx of dementia and Parkinson's
needs assistance with all ADLs
ambulating with walker and w/c
PCP Kevin Franco
medication managed by [facility]
no hx VN nor SNF that GENNY shared
DCP is to return back to [facility] when cleared
will continue to follow up for any dcp needs
[2025-03-20 14:22] LABS: COVID-19 Antigen Negative (Negative)
[2025-03-20] MEDS: STERILE WATER FOR INJECTION 10 ML IV (14:39)
[2025-03-20] MEDS: ROCEPHIN 1000 MG IV (14:39)
[2025-03-20] MEDS: VIBRAMYCIN 260 MG IV (15:09)
[2025-03-20] MEDS: LOVENOX 40 MG SC (18:42)
[2025-03-20] MEDS: TYLENOL 650 MG PO (18:43)
[2025-03-20] MEDS: ARICEPT 5 MG PO (18:43)
[2025-03-20] MEDS: LIPITOR 20 MG PO (18:43)
[2025-03-20] MEDS: VIBRAMYCIN 100 MG PO (21:27)
[2025-03-21] MEDS: TYLENOL 650 MG PO (03:16)
[2025-03-21] MEDS: NSS 1000 IV (06:15)
[2025-03-21 07:14] LABS: Hematocrit 35.3 % (39.0-52.0); Hemoglobin 12.7 g/dL (13.0-18.0); Mean Corp Hgb Conc. 36.0 g/dL (33.0-37.0); Mean Corpuscular Volume 92.2 fL (80.0-94.0); Nucleated Red Blood Cells % 0 % (-); Platelet Count 182 10^3/uL (130-400); Red Cell Dist. Width 11.7 % (11.5-14.5)
[2025-03-21 07:43] LABS: Blood Urea Nitrogen 25 mg/dl (9-20); Calcium 8.5 mg/dl (8.4-10.2); Carbon Dioxide 24 mmol/L (22-30); Chloride 107 mmol/L (98-107); Glucose 77 mg/dl (70-99); Potassium 3.8 mmol/L (3.5-5.1); Sodium 137 mmol/L (135-145); eGFR > 60.00
[2025-03-21 07:44] VITALS: BP 128/82
[2025-03-21] MEDS: CYMBALTA DELAYED RELEASE 30 MG PO (08:33)
[2025-03-21] MEDS: THERAGRAN 1 TABLET PO (08:33)
[2025-03-21] MEDS: VIBRAMYCIN 100 MG PO ×2 (08:33→20:38)
[2025-03-21] MEDS: FLOMAX 0.4 MG PO (08:33)
--- NOTE | 2025-03-21 09:16 | W.PN.HOSP.TC ---
Today's Communication/Plan
-
.
Assessment / Plan
Assessment / Plan
Physical Exam
General: No Pain, Fever or Chills. Chronically ill looking
HEENT: Normocephalic, Anicteric, Moist mucous membranes, PERRLA, [place] Conjunctivae, No Ptosis, Neck Nontender and Other (left parietal scalp laceration with 4 myah present )
Respiratory: Clear; No Wheezes, Rales or Rhonchi
Cardiac: S1/S2 and Regular Rhythm.
GI: Soft, Non Tender, Non Distended, Normal Bowel Sounds
Rectal: No bleed
Genito-urinary: No Brand. No hematuria
Musculoskeletal: No Clubbing, No Cyanosis and No Edema
Skin: Warm, Dry and Other (right forearm skin tear, Lower thoracic skin wound looks better.
Neuro: Awake, confused and disoriented at baseline.
Psych: Calm, apparent dementia
Assessment and plan:
#Unwitnessed fall with left parietal scalp laceration
#Chronic ambulatory dysfunction
-[place] #4 placed left parietal scalp in ER will need removal 7 to [address] head: No acute intracranial abnormalities
C-spine: Negative
Left hip/pelvis x-ray: No acute abnormalities
Right forearm: No acute abnormalities
#Fever with pyuria concern for UTI
UA +1 leukocyte, WBC 11-15, many bacteria, +2 ketones
Blood culture is pending
Iv Rocephin 1 gm daily
-doxycycline 100 mg bid
#Skin abscess lower thoracic
Seems to be originating from folliculitis
- I&D done by ER PAt bedside
cont Iv Rocephin an doxycycline
# Acute traumatic mild rhabdomyolysis
- CPK 934
No renal dysfunction.
No need to follow CPK
- IV fluids given in ER, continue IV NSS 80 cc an hour
- Consult PT/OT
#Parkinson's disease with Chronic Lewy body dementia baseline oriented x 1
Pt oriented to first and last name only
- Continue donepezil 5 mg every afternoon
#HLD
-Continue atorvastatin 20 mg every afternoon
#BPH
-Continue tamsulosin 0.4 mg at bedtime
#Depression
-Continue duloxetine 30 mg daily
#Insomnia
-Hold current melatonin and trazodone due to weakness
DVT prophylaxis
sq lovenox
DNR , no G tube
Per nurse Diaz at [facility] pt is [facility] under care of Neelam Cobb JOINERS SUPERVISOR. His Sister in law Heather De La Rosa [phone] is his emergency contact
I spoke with POAlirio on admission, emergency contact, updated her. Answered all her questions
Total time spent to see the patient, examine the patient, review data and lab results, discuss treatment plan with patient, nursing staff around 55 minutes
Anticipated Discharge: > 48 hours
Subjective/Interval History
-
Date of Service: March 21, 2025
No chest pain
No sob
No fevers
Objective Data
-
Labs:
Laboratory Results
03/21/25
06:26
WBC 4.7 L
Hgb 12.7 L
Hct 35.3 L
Plt Count 182
Sodium 137
Potassium 3.8
Chloride 107
Carbon Dioxide 24
BUN 25 H
Creatinine 0.7
Glucose 77
Calcium 8.5
Vital Signs:
Vital Signs
Temp Pulse Resp BP Pulse Ox
98 F 82 20 128/82 95
03/21/25 07:44 03/21/25 07:44 03/21/25 07:44 03/21/25 07:44 03/21/25 07:44
I&O
03/20/25 03/21/25 03/22/25
06:59 06:59 06:59
Intake Total 1080 / 1080
Balance 1080 / 1080
[2025-03-21] MEDS: STERILE WATER FOR INJECTION 10 ML IV (13:04)
[2025-03-21] MEDS: ROCEPHIN 1000 MG IV (13:04)
[2025-03-21 15:42] VITALS: BP 134/92
[2025-03-21] MEDS: ARICEPT 5 MG PO (17:44)
[2025-03-21] MEDS: LIPITOR 20 MG PO (17:44)
[2025-03-21] MEDS: LOVENOX 40 MG SC (17:44)
[2025-03-21 23:15] VITALS: BP 149/87
[2025-03-22 07:26] VITALS: BP 157/98
[2025-03-22] MEDS: FLOMAX 0.4 MG PO (08:45)
[2025-03-22] MEDS: THERAGRAN 1 TABLET PO (08:45)
[2025-03-22] MEDS: VIBRAMYCIN 100 MG PO ×2 (08:45→21:09)
[2025-03-22] MEDS: CYMBALTA DELAYED RELEASE 30 MG PO (08:45)
--- NOTE | 2025-03-22 09:48 | W.PN.HOSP.TC ---
Today's Communication/Plan
-
likely dc in am
Assessment / Plan
Assessment / Plan
Physical Exam
General: No Pain, Fever or Chills. Chronically ill looking
HEENT: Normocephalic, Anicteric, Moist mucous membranes, PERRLA, [place] Conjunctivae, No Ptosis, Neck Nontender and Other (left parietal scalp laceration with 4 myah present )
Respiratory: Clear; No Wheezes, Rales or Rhonchi
Cardiac: S1/S2 and Regular Rhythm.
GI: Soft, Non Tender, Non Distended, Normal Bowel Sounds
Rectal: No bleed
Genito-urinary: No Brand. No hematuria
Musculoskeletal: No Clubbing, No Cyanosis and No Edema
Skin: Warm, Dry and Other (right forearm skin tear, Lower thoracic skin wound looks better.
Neuro: Awake, confused and disoriented at baseline.
Psych: Calm, apparent dementia
Assessment and plan:
#Unwitnessed fall with left parietal scalp laceration
#Chronic ambulatory dysfunction
-[place] #4 placed left parietal scalp in ER will need removal 7 [address] head: No acute intracranial abnormalities
C-spine: Negative
Left hip/pelvis x-ray: No acute abnormalities
Right forearm: No acute abnormalities
#Fever with pyuria concern for UTI
UA +1 leukocyte, WBC 11-15, many bacteria, +2 ketones
Blood culture is pending
Iv Rocephin 1 gm daily
-doxycycline 100 mg bid
#Skin abscess lower thoracic
Seems to be originating from folliculitis
- I&D done by ER PAt bedside , culture is pending.
cont Iv Rocephin an doxycycline
# Acute traumatic mild rhabdomyolysis
- CPK 934
No renal dysfunction.
No need to follow CPK
- IV fluids given in ER, continue IV NSS 80 cc an hour
- Consult PT/OT
#Parkinson's disease with Chronic Lewy body dementia baseline oriented x 1
Pt oriented to first and last name only
- Continue donepezil 5 mg every afternoon
#HLD
-Continue atorvastatin 20 mg every afternoon
#BPH
-Continue tamsulosin 0.4 mg at bedtime
#Depression
-Continue duloxetine 30 mg daily
#Insomnia
-Hold current melatonin and trazodone due to weakness
DVT prophylaxis
sq lovenox
DNR , no G tube
Per nurse Diaz at [facility] pt is on palliative [facility] with [facility] under care of Neelam Cobb SHEET METAL ENGINEER. His Sister in law Heather De La Rosa [phone] is his emergency contact
I spoke with POA on admission, emergency contact, updated her. Answered all her questions
Total time spent to see the patient, examine the patient, review data and lab results, discuss treatment plan with patient, nursing staff around 45 minutes
Anticipated Discharge: Within 24 hours
Subjective/Interval History
-
Date of Service: March 22, 2025
No fevers
Objective Data
-
Vital Signs:
Vital Signs
Temp Pulse Resp BP Pulse Ox
98.6 F 90 18 157/98 96
03/22/25 07:26 03/22/25 07:26 03/22/25 07:26 03/22/25 07:26 03/22/25 07:26
I&O
03/21/25 03/22/25 03/23/25
06:59 06:59 06:59
Intake Total 1080 / 1080 560 / 560 240 / 240
Output Total 100 / 100
Balance 1080 / 1080 460 / 460 240 / 240
[2025-03-22] MEDS: STERILE WATER FOR INJECTION 10 ML IV (13:36)
[2025-03-22] MEDS: ROCEPHIN 1000 MG IV (13:36)
[2025-03-22 14:56] VITALS: BP 167/92
--- NOTE | 2025-03-22 16:28 | CM ---
Chart reviewed. PT/OT evals completed today. Patient requires max assist for bed mobility. Increased assistance at the [facility] recommended vs. SNF . MARIBELL spoke with Joe, nursing Dental Resident at the [facility] and provided update. Per Joe, patient
would not be able to return to the [facility] at current functional level. She feels short term SNF is needed. MARIBELL spoke with patient's [id number], Heather re SNF. She would prefer placement at [facility] where patient had previous admission. Also
discussed referrals to other SNF in the [facility] as back up.
Plan: SNF
[2025-03-22] MEDS: LOVENOX 40 MG SC (18:13)
[2025-03-22] MEDS: LIPITOR 20 MG PO (18:13)
[2025-03-22] MEDS: ARICEPT 5 MG PO (18:13)
[2025-03-22] MEDS: DESYREL 50 MG PO (18:13)
[2025-03-22] MEDS: MELATONIN 5 MG PO (21:09)
[2025-03-22 23:53] VITALS: BP 124/70
[2025-03-23 07:52] VITALS: BP 147/82
[2025-03-23] MEDS: FLOMAX 0.4 MG PO (08:19)
[2025-03-23] MEDS: CYMBALTA DELAYED RELEASE 30 MG PO (08:19)
[2025-03-23] MEDS: THERAGRAN 1 TABLET PO (08:19)
[2025-03-23] MEDS: VIBRAMYCIN 100 MG PO ×2 (08:19→20:48)
--- NOTE | 2025-03-23 09:47 | W.PN.HOSP.TC ---
Addendum entered and electronically signed by Ras Marshall MD 03/23/25 13:35:
Addendum
Patient looks scared and jittery from people coming in and out of his room. He used to stay in private room in memory care unit. He had history of hallucinations in the past. Discussed with POA, I recommended private room if possible or bed by
the window to decrease the traffic and make him less confused.
End
Original Note:
Today's Communication/Plan
-
dc in am
Assessment / Plan
Assessment / Plan
Physical Exam
General: No Pain, Fever or Chills. Chronically ill looking
HEENT: Normocephalic, Anicteric, Moist mucous membranes, PERRLA, [place] Conjunctivae, No Ptosis, Neck Nontender and Other (left parietal scalp laceration with 4 myah present )
Respiratory: Clear; No Wheezes, Rales or Rhonchi
Cardiac: S1/S2 and Regular Rhythm.
GI: Soft, Non Tender, Non Distended, Normal Bowel Sounds
Rectal: No bleed
Genito-urinary: No Brand. No hematuria
Musculoskeletal: No Clubbing, No Cyanosis and No Edema
Skin: Warm, Dry and Other (right forearm skin tear). Lower thoracic skin abscess looks better, no swelling ortenderness.
Neuro: Awake, confused and disoriented at baseline.
Psych: Calm, apparent dementia
Assessment and plan:
#Unwitnessed fall with left parietal scalp laceration
#Chronic ambulatory dysfunction
-[place] #4 placed left parietal scalp in ER will need removal 7 to [address] head: No acute intracranial abnormalities
C-spine: Negative
Left hip/pelvis x-ray: No acute abnormalities
Right forearm: No acute abnormalities
#Fever with pyuria concern for UTI
UA +1 leukocyte, WBC 11-15, many bacteria, +2 ketones
Blood culture is NGTD
Urine culture is negative
Iv Rocephin 1 gm daily
-doxycycline 100 mg bid
#Skin abscess lower thoracic
Seems to be originating from folliculitis
Much improved, no swelling or tenderness.
- I&D done by ER PAt bedside , culture is NGTD
cont Iv Rocephin an doxycycline
# Acute traumatic mild rhabdomyolysis
- CPK 934
No renal dysfunction.
No need to follow CPK
- Consult PT/OT
#Parkinson's disease with Chronic Lewy body dementia
Toxic metabolic encephalopathy due to fever and infection
Met with POA. Patient was more alert before. He seemed to improve after sleeping well.
- Continue donepezil 5 mg every afternoon
#HLD
-Continue atorvastatin 20 mg every afternoon
#BPH
-Continue tamsulosin 0.4 mg at bedtime
#Depression
-Continue duloxetine 30 mg daily
#Insomnia
- Resume home meds. He slept better last night
DVT prophylaxis
sq lovenox
DNR , no G tube
Per nurse Diaz at [facility] pt is on palliative [facility] with [facility] under care of Neelam Cobb GAS MASK INSPECTOR. His Sister in law Heather De La Rosa [phone] is his emergency contact
Total time spent to see the patient, examine the patient, review data and lab results, discuss treatment plan with patient, POA ( met at bed side) , nursing staff around 57 minutes
Anticipated Discharge: Within 24 hours
Subjective/Interval History
-
Date of Service: March 23, 2025
No fevers
he denies back pain or headache
Objective Data
-
Vital Signs:
Vital Signs
Temp Pulse Resp BP Pulse Ox
98.3 F 65 18 147/82 93
03/23/25 07:52 03/23/25 07:52 03/23/25 07:52 03/23/25 07:52 03/23/25 07:52
I&O
03/22/25 03/23/25 03/24/25
06:59 06:59 06:59
Intake Total 560 / 560 390 / 390
Output Total 100 / 100
Balance 460 / 460 390 / 390
[2025-03-23] MEDS: ROCEPHIN 1000 MG IV (13:16)
[2025-03-23] MEDS: STERILE WATER FOR INJECTION 10 ML IV (13:16)
[2025-03-23 15:16] VITALS: BP 123/84
[2025-03-23] MEDS: LOVENOX 40 MG SC (16:14)
[2025-03-23] MEDS: LIPITOR 20 MG PO (16:14)
[2025-03-23] MEDS: DESYREL 50 MG PO (16:14)
[2025-03-23] MEDS: ARICEPT 5 MG PO (16:14)
[2025-03-23] MEDS: MELATONIN 5 MG PO (20:48)
[2025-03-23 23:00] VITALS: BP 131/76
[2025-03-24 07:31] VITALS: BP 151/96
[2025-03-24] MEDS: FLOMAX 0.4 MG PO (07:48)
[2025-03-24] MEDS: CYMBALTA DELAYED RELEASE 30 MG PO (07:48)
[2025-03-24] MEDS: VIBRAMYCIN 100 MG PO ×2 (07:48→20:10)
[2025-03-24] MEDS: THERAGRAN 1 TABLET PO (07:48)
--- NOTE | 2025-03-24 09:12 | W.PN.HOSP.TC ---
Today's Communication/Plan
-
dc planning, will need SNF
Assessment / Plan
Assessment / Plan
Physical Exam
General: No Pain, Fever or Chills. Chronically ill looking
HEENT: Normocephalic, Anicteric, Moist mucous membranes, PERRLA, [place] Conjunctivae, No Ptosis, Neck Nontender and Other (left parietal scalp laceration with 4 myah present )
Respiratory: Clear; No Wheezes, Rales or Rhonchi
Cardiac: S1/S2 and Regular Rhythm.
GI: Soft, Non Tender, Non Distended, Normal Bowel Sounds
Rectal: No bleed
Genito-urinary: No Brand. No hematuria
Musculoskeletal: No Clubbing, No Cyanosis and No Edema
Skin: Warm, Dry and Other (right forearm skin tear). Lower thoracic skin abscess looks better, no swelling ortenderness.
Neuro: Awake, confused and disoriented at baseline.
Psych: Calm, apparent dementia
Assessment and plan:
#Unwitnessed fall with left parietal scalp laceration
#Chronic ambulatory dysfunction
-[place] #4 placed left parietal scalp in ER, will need removal 7 to [address] head: No acute intracranial abnormalities
C-spine: Negative
Left hip/pelvis x-ray: No acute abnormalities
Right forearm: No acute abnormalities
#Fever with pyuria concern for UTI
UA +1 leukocyte, WBC 11-15, many bacteria, +2 ketones
Blood culture is NGTD
Urine culture is negative
Iv Rocephin 1 gm daily
-doxycycline 100 mg bid
#Skin abscess lower thoracic
Seems to be originating from folliculitis
Much improved, no swelling or tenderness.
- I&D done by ER PAt bedside , culture is NGTD
Stop Iv Rocephin
c/w oral doxycycline for total 7 days. last day 03/26.
# Acute traumatic mild rhabdomyolysis
- CPK 934
No renal dysfunction.
No need to follow CPK
- Consulted PT/OT
#Parkinson's disease with Chronic Lewy body dementia
Toxic metabolic encephalopathy due to fever and infection
Met with POA. Patient was more alert before. He seemed to improve after sleeping well.
- Continue donepezil, Trazodone, Duloxetine.
#HLD
-Continue atorvastatin 20 mg every afternoon
#BPH
-Continue tamsulosin 0.4 mg at bedtime
#Depression history.
-Continue duloxetine 30 mg daily
#Insomnia
- Resumed home meds.
DVT prophylaxis
sq lovenox
DNR , no G tube
Per nurse Diaz at [facility] pt is on palliative [facility] with [facility] under care of Neelam Cobb WEB MARKETING INTERN. His Sister in [facility] Heather De La Rosa [phone] is his emergency contact
Total time spent to see the patient, examine the patient, review data and lab results, discuss treatment plan with patient, POA , nursing staff around 55 minutes
Anticipated Discharge: Today
Subjective/Interval History
-
Date of Service: March 24, 2025
No fever
No agitation
Tolerating diet well
No pain in back, no headache
Objective Data
-
Vital Signs:
Vital Signs
Temp Pulse Resp BP Pulse Ox
97.7 F 72 16 151/96 95
03/24/25 07:31 03/24/25 07:31 03/24/25 07:31 03/24/25 07:31 03/24/25 07:31
I&O
03/23/25 03/24/25 03/25/25
06:59 06:59 06:59
Intake Total 390 / 390 420 / 420
Output Total 250 / 250
Balance 390 / 390 170 / 170
[2025-03-24 10:13] LABS: Hematocrit 36.8 % (39.0-52.0); Hemoglobin 13.3 g/dL (13.0-18.0); Mean Corp Hgb Conc. 36.1 g/dL (33.0-37.0); Mean Corpuscular Volume 89.8 fL (80.0-94.0); Platelet Count 216 10^3/uL (130-400); Red Cell Dist. Width 11.5 % (11.5-14.5)
[2025-03-24 10:39] LABS: Blood Urea Nitrogen 23 mg/dl (9-20); Calcium 9.1 mg/dl (8.4-10.2); Carbon Dioxide 28 mmol/L (22-30); Chloride 105 mmol/L (98-107); Glucose 122 mg/dl (70-99); Potassium 3.7 mmol/L (3.5-5.1); Sodium 137 mmol/L (135-145); eGFR > 60.00
[2025-03-24 14:59] LABS: Hematocrit 35.9 % (39.0-52.0); Hemoglobin 13.3 g/dL (13.0-18.0); Mean Corp Hgb Conc. 37.0 g/dL (33.0-37.0); Mean Corpuscular Volume 89.1 fL (80.0-94.0); Platelet Count 215 10^3/uL (130-400); Red Cell Dist. Width 11.5 % (11.5-14.5)
[2025-03-24 15:21] LABS: Blood Urea Nitrogen 23 mg/dl (9-20); Calcium 9.1 mg/dl (8.4-10.2); Carbon Dioxide 25 mmol/L (22-30); Chloride 106 mmol/L (98-107); Glucose 169 mg/dl (70-99); Potassium 3.8 mmol/L (3.5-5.1); Sodium 137 mmol/L (135-145); eGFR > 60.00
[2025-03-24 15:30] VITALS: BP 136/86
[2025-03-24] MEDS: LOVENOX 40 MG SC (16:37)
[2025-03-24] MEDS: DESYREL 50 MG PO (16:38)
[2025-03-24] MEDS: ARICEPT 5 MG PO (16:38)
[2025-03-24] MEDS: LIPITOR 20 MG PO (16:38)
[2025-03-24] MEDS: MELATONIN 5 MG PO (20:11)
[2025-03-24 23:27] VITALS: BP 134/80
[2025-03-25 07:30] VITALS: BP 150/86
[2025-03-25] MEDS: CYMBALTA DELAYED RELEASE 30 MG PO (07:41)
[2025-03-25] MEDS: FLOMAX 0.4 MG PO (07:41)
[2025-03-25] MEDS: THERAGRAN 1 TABLET PO (07:42)
[2025-03-25] MEDS: VIBRAMYCIN 100 MG PO ×2 (07:42→19:48)
--- NOTE | 2025-03-25 11:57 | CM ---
Addendum entered by Jane Shipley 03/25/25 15:48:
Patient's [id number] completed application to [facility]. CM forwarded completed application to [facility] Admissions. Application is pending review. Referrals are being made to other area SNFs in case [facility] is unable to accept.
Original Note:
CM is working on SNF for patient. [facility] is considering for admission but has requested financial application. Application was forwarded to patient's [id number], Nithya De La Rosa this am.
Plan: SNF
[2025-03-25 15:30] VITALS: BP 149/79
[2025-03-25] MEDS: REFRESH EYE DROPS (PF) 1 DROPS OPHTH (16:08)
--- NOTE | 2025-03-25 16:30 | W.PN.HOSP.TC ---
Today's Communication/Plan
-
Assessment / Plan
Assessment / Plan
Physical Exam
General: No Pain, Fever or Chills. Chronically ill looking
HEENT: Normocephalic, Anicteric, Moist mucous membranes, PERRLA, [place] Conjunctivae, No Ptosis, Neck Nontender and Other (left parietal scalp laceration with 4 myah present )
Respiratory: Clear; No Wheezes, Rales or Rhonchi
Cardiac: S1/S2 and Regular Rhythm.
GI: Soft, Non Tender, Non Distended, Normal Bowel Sounds
Rectal: No bleed
Genito-urinary: No Brand. No hematuria
Musculoskeletal: No Clubbing, No Cyanosis and No Edema
Skin: Warm, Dry and Other (right forearm skin tear). Lower thoracic skin abscess looks better, no swelling ortenderness.
Neuro: Awake, confused and disoriented at baseline.
Psych: Calm, apparent dementia
Assessment and plan:
#Unwitnessed fall with left parietal scalp laceration
#Chronic ambulatory dysfunction
-[place] #4 placed left parietal scalp in ER, will need removal 7 to 10 days (around 03/29/2025)
CT head: No acute intracranial abnormalities
C-spine: Negative
Left hip/pelvis x-ray: No acute abnormalities
Right forearm: No acute abnormalities
Medically stable for discharge to SNF, placement pending
#Fever with pyuria concern for UTI
UA +1 leukocyte, WBC 11-15, many bacteria, +2 ketones
Blood culture is NGTD
Urine culture is negative
Fever was very mild at 100.4 degrees at the time of admission, has been afebrile since
-doxycycline 100 mg bid, will complete course tomorrow 03/26
#Skin abscess lower thoracic
Seems to be originating from folliculitis
Much improved, no swelling or tenderness.
- I&D done by ER PAt bedside , culture is NGTD
Stop Iv Rocephin
c/w oral doxycycline for total 7 days. last day 03/26.
# Acute traumatic mild rhabdomyolysis
- CPK 934
No renal dysfunction.
No need to follow CPK
- Consulted PT/OT, SNF placement pending
#Parkinson's disease with Chronic Lewy body dementia
Toxic metabolic encephalopathy due to fever and infection, now improved
- Continue donepezil, Trazodone, Duloxetine.
#HLD
-Continue atorvastatin 20 mg every afternoon
#BPH
-Continue tamsulosin 0.4 mg at bedtime
#Depression history.
-Continue duloxetine 30 mg daily
#Insomnia
- Resumed home meds.
DVT prophylaxis
sq lovenox
DNR , no G tube
Per nurse Diaz at [facility] pt is on palliative care with [facility] under care of Neelam Cobb NP. His Sister in law Heather De La Rosa [phone] is his emergency contact
Anticipated Discharge: 24 - 48 hours
Subjective/Interval History
-
Date of Service: March 25, 2025
Patient was seen and examined at bedside this morning. Stable, awaiting SNF placement.
Objective Data
-
Vital Signs:
Vital Signs
Temp Pulse Resp BP Pulse Ox
98.0 F 72 20 149/79 94
03/25/25 15:30 03/25/25 15:30 03/25/25 15:30 03/25/25 15:30 03/25/25 15:30
I&O
03/24/25 03/25/25 03/26/25
06:59 06:59 06:59
Intake Total 420 / 420 960 / 960
Output Total 250 / 250 100 / 100
Balance 170 / 170 860 / 860
Review of Systems
-
Unable to obtain full review of systems at this time due to: Dementia
History Source: Patient
All other systems: Reviewed and negative
Physical Exam
-
General: No Apparent Distress
[2025-03-25] MEDS: DESYREL 50 MG PO (17:11)
[2025-03-25] MEDS: ARICEPT 5 MG PO (17:11)
[2025-03-25] MEDS: LOVENOX 40 MG SC (17:11)
[2025-03-25] MEDS: LIPITOR 20 MG PO (17:11)
[2025-03-25] MEDS: MELATONIN 5 MG PO (19:48)
[2025-03-25 23:38] VITALS: BP 129/75
[2025-03-26 07:30] VITALS: BP 112/81
[2025-03-26] MEDS: CYMBALTA DELAYED RELEASE 30 MG PO (07:49)
[2025-03-26] MEDS: VIBRAMYCIN 100 MG PO ×2 (07:49→19:14)
[2025-03-26] MEDS: FLOMAX 0.4 MG PO (07:49)
[2025-03-26] MEDS: THERAGRAN 1 TABLET PO (07:49)
[2025-03-26 08:19] LABS: Hematocrit 38.5 % (39.0-52.0); Hemoglobin 14.0 g/dL (13.0-18.0); Mean Corp Hgb Conc. 36.4 g/dL (33.0-37.0); Mean Corpuscular Volume 89.5 fL (80.0-94.0); Nucleated Red Blood Cells % 0 % (-); Platelet Count 221 10^3/uL (130-400); Red Cell Dist. Width 11.5 % (11.5-14.5)
[2025-03-26 09:19] LABS: ALT (SGPT) 34 U/L (0-50); AST (SGOT) 34 U/L (17-59); Albumin 3.4 g/dl (3.5-5.0); Alkaline Phosphatase 87 U/L (38-126); Blood Urea Nitrogen 22 mg/dl (9-20); Calcium 8.7 mg/dl (8.4-10.2); Carbon Dioxide 28 mmol/L (22-30); Chloride 105 mmol/L (98-107); Glucose 100 mg/dl (70-99); Potassium 4.1 mmol/L (3.5-5.1); Sodium 136 mmol/L (135-145); Total Protein 6.7 g/dl (6.3-8.2); eGFR > 60.00
--- NOTE | 2025-03-26 14:18 | CM ---
CM is working on SNF for patient. [facility] has accepted patient. Contacted patient's insurance for authorization. Authorization is pending.
[facility] pending reference # for SNF- [id number]
Plan: [facility] once insurance auth obtained
[2025-03-26] MEDS: REFRESH EYE DROPS (PF) 1 DROPS OPHTH (15:22)
[2025-03-26 15:30] VITALS: BP 134/96
--- NOTE | 2025-03-26 16:24 | W.PN.HOSP.TC ---
Today's Communication/Plan
-
Assessment / Plan
Assessment / Plan
Physical Exam
General: No Pain, Fever or Chills. Chronically ill looking
HEENT: Normocephalic, Anicteric, Moist mucous membranes, PERRLA, [place] Conjunctivae, No Ptosis, Neck Nontender and Other (left parietal scalp laceration with 4 myah present )
Respiratory: Clear; No Wheezes, Rales or Rhonchi
Cardiac: S1/S2 and Regular Rhythm.
GI: Soft, Non Tender, Non Distended, Normal Bowel Sounds
Rectal: No bleed
Genito-urinary: No Brand. No hematuria
Musculoskeletal: No Clubbing, No Cyanosis and No Edema
Skin: Warm, Dry and Other (right forearm skin tear). Lower thoracic skin abscess looks better, no swelling or tenderness.
Neuro: Awake, confused and disoriented at baseline.
Psych: Calm, apparent dementia
Assessment and plan:
#Unwitnessed fall with left parietal scalp laceration
#Chronic ambulatory dysfunction
-[place] #4 placed left parietal scalp in ER, will need removal 7 to 10 days (around 03/29/2025)
CT head: No acute intracranial abnormalities
C-spine: Negative
Left hip/pelvis x-ray: No acute abnormalities
Right forearm: No acute abnormalities
Medically stable for discharge to SNF, placement pending
#Fever with pyuria concern for UTI
UA +1 leukocyte, WBC 11-15, many bacteria, +2 ketones
Blood culture is NGTD
Urine culture is negative
Fever was very mild at 100.4 degrees at the time of admission, has been afebrile since
-doxycycline 100 mg bid, completing course today 03/26
#Skin abscess lower thoracic
Seems to be originating from folliculitis
Much improved, no swelling or tenderness.
- I&D done by ER PAt bedside , culture is NGTD
Stop Iv Rocephin
c/w oral doxycycline for total 7 days. last day today 03/26.
# Acute traumatic mild rhabdomyolysis
- CPK 934
No renal dysfunction.
No need to follow CPK
- Consulted PT/OT, SNF placement pending
#Parkinson's disease with Chronic Lewy body dementia
Toxic metabolic encephalopathy due to fever and infection, now improved
- Continue donepezil, Trazodone, Duloxetine.
#HLD
-Continue atorvastatin 20 mg every afternoon
#BPH
-Continue tamsulosin 0.4 mg at bedtime
#Depression history.
-Continue duloxetine 30 mg daily
#Insomnia
- Resumed home meds.
DVT prophylaxis
sq lovenox
DNR , no G tube
Per nurse Diaz at [facility] pt is on [facility] under care of Neelam Cobb NP. His Sister in law Heather De La Rosa [phone] is his emergency contact
Anticipated Discharge: 24 - 48 hours
Subjective/Interval History
-
Date of Service: March 26, 2025
Patient was seen and examined at bedside this morning. No acute events overnight. Awaiting SNF placement.
Objective Data
-
Labs:
Laboratory Results
03/26/25
07:50
WBC 5.7
Hgb 14.0
Hct 38.5 L
Plt Count 221
Sodium 136
Potassium 4.1
Chloride 105
Carbon Dioxide 28
BUN 22 H
Creatinine 0.7
Glucose 100 H
Calcium 8.7
Total Bilirubin 0.8
AST 34
ALT 34
Alkaline Phosphatase 87
Vital Signs:
Vital Signs
Temp Pulse Resp BP Pulse Ox
98.5 F 90 20 134/96 95
03/26/25 15:30 03/26/25 15:30 03/26/25 15:30 03/26/25 15:30 03/26/25 15:30
I&O
03/25/25 03/26/25 03/27/25
06:59 06:59 06:59
Intake Total 960 / 960 600 / 600
Output Total 100 / 100
Balance 860 / 860 600 / 600
Review of Systems
-
Unable to obtain full review of systems at this time due to: Dementia
History Source: Patient
All other systems: Reviewed and negative
Physical Exam
-
General: No Apparent Distress and Appears Chronically Ill
[2025-03-26] MEDS: ARICEPT 5 MG PO (17:15)
[2025-03-26] MEDS: LOVENOX 40 MG SC (17:15)
[2025-03-26] MEDS: LIPITOR 20 MG PO (17:15)
[2025-03-26] MEDS: DESYREL 50 MG PO (17:15)
[2025-03-26] MEDS: MELATONIN 5 MG PO (19:14)
[2025-03-26 23:44] VITALS: BP 127/76
[2025-03-27 08:13] VITALS: BP 149/78
[2025-03-27] MEDS: THERAGRAN 1 TABLET PO (09:13)
[2025-03-27] MEDS: FLOMAX 0.4 MG PO (09:13)
[2025-03-27] MEDS: CYMBALTA DELAYED RELEASE 30 MG PO (09:13)
--- NOTE | 2025-03-27 13:06 | W.DCSUMMARY ---
Discharge Summary
Discharge Data
Date of Admission: 03/22/25
Date of Discharge: 03/27/25
Total time spent discharging patient (in min): 44
-
Pending Results: No
Hospital Course
Mr. De La Rosa is a 79-year-old male with a medical history of Lewy body dementia and Parkinson's disease who presented from his living facility after an unwitnessed fall in which he apparently hit his head. He was found to have a laceration on the
left occipital parietal region requiring myah. 4 myah were placed and will need removal after 7 to 10 days, which is around 03/29/2025. Imaging of his head and neck showed no acute intracranial or spinal abnormalities. No fractures or
dislocations were identified on imaging of his arms or hips. He did have a very mild fever at the time of admission and urinalysis showed pyuria and bacteria. He also had a abscess on his back which was I&D in the ED. He completed a total 7-day
course of antibiotics, last dose of antibiotics was 03/26. He was evaluated by PT who recommended SNF which has been arranged. He was medically stable at time of hospital discharge.
General: No Pain, Fever or Chills. Chronically ill looking
HEENT: Normocephalic, Anicteric, Moist mucous membranes, PERRLA, [place] Conjunctivae, No Ptosis, Neck Nontender and Other (left parietal scalp laceration with 4 myah present )
Respiratory: Clear; No Wheezes, Rales or Rhonchi
Cardiac: S1/S2 and Regular Rhythm.
GI: Soft, Non Tender, Non Distended, Normal Bowel Sounds
Rectal: No bleed
Genito-urinary: No Brand. No hematuria
Musculoskeletal: No Clubbing, No Cyanosis and No Edema
Skin: Warm, Dry and Other (right forearm skin tear). Lower thoracic skin abscess looks better, no swelling or tenderness.
Neuro: Awake, confused and disoriented at baseline.
Psych: Calm, apparent dementia
Discharge Plan
-
Patient Disposition: [facility]/SNF
Discharge Diagnosis/Procedures: Ambulatory dysfunction
Fall with head strike scalp laceration
UTI
Skin abscess (lower thoracic)
Activity Restrictions/Additional Instructions:
You were admitted for treatment of a urinary tract infection. You were also treated for a scalp laceration which you incurred after a fall with head strike. Imaging of your head and neck showed no acute intracranial or spinal abnormalities. You
also had an abscess on your back drained. You completed a 7-day course of antibiotics. You were evaluated by physical therapy who [facility] for [facility] after hospital discharge.
Referrals:
Kevin Franco MD [Family Provider, [facility]]
Prescriptions:
Continued
atorvastatin 20 mg Tablet
20 mg PO QPM
trazodone 50 mg Tablet
50 mg PO QPM
acetaminophen 500 mg Tablet
500 mg PO Q6HPRN PRN (Reason: MILD pain)
tamsulosin 0.4 mg Capsule
0.4 mg PO DAILY
albuterol sulfate 90 mcg/actuation Hfa Aerosol Inhaler
2 puff INHALATION R Q4HPRN PRN (Reason: wheezing)
donepezil 5 mg Tablet
5 mg PO QPM
therapeutic multivitamin Tablet
1 tab PO DAILY
magnesium hydroxide [Milk of Magnesia] 400 mg/5 mL Suspension
30 ml PO DAILYPRN PRN (Reason: constipation)
duloxetine 30 mg Capsule,Delayed Release(Dr/Ec)
30 mg PO DAILY
melatonin 5 mg Tablet
5 mg PO HS
OcuSoft Lid Scrub Pads, Medicated
1 pad TOPICAL TID
Rx Instructions:
twice daily in am & bedtime - mko 03/20/25
guar gum Powder
3 g PO BID
Discharge Orders:
Discharge Patient (As Directed); Ordered 03/27/25
Ordered By: Crow Owens
Discharge Date and Time
Print Language: IRISH
--- NOTE | 2025-03-27 13:27 | CM ---
SNF authorization obtained from [facility]. Patient will be transferred to [facility] today. Discussed transfer arrangements with patient's [id number]. IMM given
[facility] SNF authorization- [id number] (03/27- 04/01)
[facility]
Phone# for Nurse [phone]

Plan: [facility] today.
[2025-03-27 16:11] VITALS: BP 147/86
[2025-03-27] MEDS: LIPITOR 20 MG PO (16:40)
[2025-03-27] MEDS: DESYREL 50 MG PO (16:40)
[2025-03-27] MEDS: ARICEPT 5 MG PO (16:40)
[2025-03-27] MEDS: LOVENOX 40 MG SC (16:41)
== END 2025-03-27 17:41 | DRG 604 ==
LOC: 4 WEST ACU 11:08
PROVIDERS: Clinical Nurse Specialist Family Health; Physician Assistant; ADMITTING PHYSICIAN Internal Medicine; ATTENDING PHYSICIAN Internal Medicine; EMERGENCY PHYSICIAN Emergency Medicine; FAMILY PHYSICIAN Family Medicine
DX: S01.01XA Laceration without foreign body of scalp, initial encounter (principal); G92.8 Other toxic encephalopathy; N39.0 Urinary tract infection, site not specified; F02.83 Dementia in other diseases classified elsewhere, unspecified severity, with mood disturbance; F02.818 Dementia in other diseases classified elsewhere, unspecified severity, with other behavioral disturbance; L02.212 Cutaneous abscess of back [any part, except buttock and flank]; W19.XXXA Unspecified fall, initial encounter; T79.6XXA Traumatic ischemia of muscle, initial encounter; G20.A1 Parkinson's disease without dyskinesia, without mention of fluctuations; G31.83 Neurocognitive disorder with Lewy bodies; G47.00 Insomnia, unspecified; E78.5 Hyperlipidemia, unspecified; N40.0 Benign prostatic hyperplasia without lower urinary tract symptoms; Z66 Do not resuscitate; F32.A Depression, unspecified; S40.021A Contusion of right upper arm, initial encounter; S51.811A Laceration without foreign body of right forearm, initial encounter
CPT/HCPCS: 12002; 70450; 72125; 73090; 73502; 80048; 80053; 81003; 81015; 82550; 84484; 85025; 85027; 87040; 87070; 87086; 87205; 87502; 87811; 93005; 96360; 97110; 97162; 97530; 99285